=== PATIENT | female | born 1955 | race Caucasian/White ===

== ENCOUNTER 2018-04-19 02:09 | Inpatient (IN) | payer OTHER ==
[2018-04-19] VITALS (8 sets, daily range): BP systolic 106–152; BP diastolic 56–85
[~2018-04-19] VITALS: Ht 154.9 cm; Wt 92.1 kg
--- NOTE | ~2018-04-19 | ST ---
[place], [place] EXERCISE STRESS TEST REPORT NAME: LOBITO LEON UNIT #: [id number] ROOM: 405 DOCTOR: KATY SPAIN,WERO BIRTHDATE: [birth year] DOS: 04/19/2018 REASON FOR TEST: Chest pain. PHYSICAL EXAMINATION: NECK: Supple. LUNGS: Clear anteriorly. HEART: Regular rhythm. PROTOCOL: Russ protocol. Total stress time 3 minutes. Maximum heart rate of 138, which is 88% target heart rate and blood pressure 168/70. Total mets 4.7 mets. SYMPTOMS: The patient has chest pain. EKG: Resting EKG showed sinus rhythm. Stress EKG showed nondiagnostic inferior ST-T changes. CONCLUSION: Clinically, the patient is chest pain-free. The EKG nondiagnostic ST-T changes in the inferior leads. POST-STRESS COMPLICATIONS: None. WERO BURNS MD CM:STRESS:EXERCISE STRESS TEST REPORT 14 [id number] WERO BURNS MD
--- NOTE | ~2018-04-19 | EKG ---
[place], [place] ELECTROCARDIOGRAM REPORT NAME: LOBITO LEON UNIT #: [id number] ROOM: 405 DOCTOR: YAMILETHANY DRAFT REPORT BIRTHDATE: [birth year] [facility] Test Date: 2018-04-19 Test Time: 02:12:09 Pat Name: LOBITO LEON Department: ER Room: 405 Gender: F Electromechanic: Raul Guy : 1955 Requested By: PASCALE GILL Order Number: [id number] Reading MD: Mikhail Mendoza MD Measurements Intervals [place] Rate: 106 P: 62 [place]: 115 QRS: 60 QRSD: 97 T: -2 QT: 358 QTc: 476 Interpretive Statements Sinus tachycardia Left atrial enlargement Borderline repolarization abnormality Electronically Signed On 04-22-2018 8:30:30 PST by Mikhail Mendoza MD CM:EKGRPT:ELECTROCARDIOGRAM REPORT 0212 0830 PASCALE GILL MD EPIPHANY DRAFT REPORT PASCALE GILL MD
--- NOTE | ~2018-04-19 | EKG ---
[place], [place] ELECTROCARDIOGRAM REPORT NAME: LOBITO LEON UNIT #: [id number] ROOM: 405 DOCTOR: JOSE DRAFT REPORT BIRTHDATE: [birth year] [facility] Test Date: 2018-04-19 Test Time: 08:16:23 Pat Name: LOBITO LEON Department: Room: 405 Gender: F Claim Taker: CECILE : 1955 Requested By: PASCALE GILL Order Number: [id number] Reading MD: Vincenzo Ryan MD Measurements Intervals [place] Rate: 65 P: 7 NV: 121 QRS: 43 QRSD: 86 T: 18 QT: 435 QTc: 453 Interpretive Statements Sinus rhythm Abnormal R-wave progression, early transition Baseline wander in lead(s) I,III,aVL Electronically Signed On 04-23-2018 11:07:33 PST by Vincenzo Ryan MD CM:EKGRPT:ELECTROCARDIOGRAM REPORT 0816 1107 PASCALE GILL MD EPIPHANY DRAFT REPORT PASCALE GILL MD
--- NOTE | ~2018-04-19 | CON ---
[place], [place] REPORT OF CONSULTATION NAME: LOBITO LEON UNIT #: [id number] ROOM: 405 DOCTOR: WERO BURNS MD BIRTHDATE: [birth year] DOS: 04/19/2018 CARDIOLOGY CONSULTATION REASON FOR CONSULTATION: Chest pain. HISTORY OF PRESENT ILLNESS: The patient is a 63-year-old patient who has history of dyslipidemia, non-morbid obesity, irritable bowel syndrome, presented to the Emergency Room for chest pain as well as some nausea and she was admitted to the hospital and Cardiology was consulted for any further recommendation. She has this pain at rest in the midsternal area, pain radiated to her back and she describes the pain as some heaviness and tightness feeling associated with some nausea and vomiting x 1. The pain did radiate to her back and apparently she woke up from sleep with this pain. Initially, she had some shortness of breath and subsequently developed some nausea and vomiting. She tried at home some Tums with minimal relief and subsequently presented to the Emergency Room and was admitted to the hospital. She has history of peptic ulcer disease, hiatal hernia and irritable bowel syndrome. She denies any anginal chest pains, palpations or dizziness at home. No PND, no orthopnea. No bladder symptoms. No neurologic symptoms. No musculoskeletal symptoms. No history of coronary artery disease, diabetes or hypertension. REVIEW OF SYSTEMS: Review of 10 systems negative except as mentioned above. PAST MEDICAL HISTORY: 1. Hiatal hernia. 2. Peptic ulcer disease. 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 4. Non-morbid obesity. 5. Dyslipidemia. PAST SURGICAL HISTORY: History of ankle surgery and history of hysterectomy. SOCIAL HISTORY: The patient does not smoke or drink, does not use illicit drugs. FAMILY HISTORY: Mother is alive and healthy. Father in his 60s, unknown cause. ALLERGIES: No known drug allergies. HOME MEDICATIONS: Reviewed. PHYSICAL EXAMINATION: VITAL SIGNS: Blood pressure 128/60, pulse 85, respiratory rate 18, weight 92 kilos with BMI 38.4. GENERAL: Alert, comfortable, in no acute distress. HEAD AND NECK: Supple, no distended neck veins, no carotid bruit. Tongue was moist and pharynx clear. CHEST: Symmetrical, nontender. [place], [place] REPORT OF CONSULTATION NAME: LOBITO LEON UNIT #: [id number] ROOM: 405 DOCTOR: KATY SPAIN,WERO BIRTHDATE: [birth year] LUNGS: Clear to auscultation bilaterally. HEART: Regular rhythm, no S3. ABDOMEN: Benign, nontender. Bowel sounds normal. EXTREMITIES: Showed no edema. Distal pulses palpable. The patient had nonpitting edema. SKIN: Warm and dry. No cyanosis, no clubbing. RECTAL: Deferred. GENITOURINARY: Deferred. NEUROLOGIC: The patient is alert, oriented. No focal neurologic deficit. PSYCHIATRIC: The patient is alert with good mood and affect. REVIEW OF THE DIAGNOSTIC TESTS: EKG showed normal sinus rhythm with poor R-wave progression. Her CBC, chemistry and imaging studies reviewed. IMPRESSION: 1. Chest pain, myocardial infarction ruled out. 2. History of dyslipidemia. 3. Non-morbid obesity. 4. Guillain-[place] syndrome. 5. Nausea, currently improved. 6. Mild sinus tachycardia, resolved. 7. Labile hypertension, currently stable. 8. History of peptic ulcer disease. RECOMMENDATIONS: 1. Exercise nuclear stress test today to rule out ischemia due to her chest pain. 2. A 2D echo was ordered and pending. 3. Risk factor modification for diet, exercise, weight loss discussed. 4. Further recommendations will be based on her above tests and her symptoms. WERO BURNS MD CM:CONSTR:REPORT OF CONSULTATION 19 04/20/18 573 interface
--- NOTE | ~2018-04-19 | EKG ---
[place], [place] ELECTROCARDIOGRAM REPORT NAME: LOBITO LEON UNIT #: [id number] ROOM: 405 DOCTOR: JOSE DRAFT REPORT BIRTHDATE: [birth year] [facility] Test Date: 2018-04-19 Test Time: 03:02:32 Pat Name: LOBITO LEON Department: Room: 405 Gender: F Associate Curator: Raul Guy : 1955 Requested By: PASCALE GILL Order Number: [id number] Reading MD: Mikhail Mendoza MD Measurements Intervals [place] Rate: 80 P: 47 [place]: 126 QRS: 55 QRSD: 78 T: 24 QT: 382 QTc: 441 Interpretive Statements Sinus rhythm Probable left atrial enlargement Baseline wander in lead(s) V3 Electronically Signed On 04-22-2018 8:30:38 PST by Mikhail Mendoza MD CM:EKGRPT:ELECTROCARDIOGRAM REPORT 0302 0830 PASCALE GILL MD EPIPHANY DRAFT REPORT PASCALE GILL MD
[~2018-04-19 02:09] MED LIST: ANTIVERT/2525 MG PO; BACTRIM DS 8001 TA1 PO; CYCLOBENZAPRINE10 MG PO; CYCLOBENZAPRINE5 M3 PO; DARVOCET N 1001 TAB PO; DAYPRO600 M1 PO; FLEXERIL10 MG PO; HYDROCODONE BIT1 T11 PO; KEFLEX500 MG PO; Motrin,Rufen800 MG PO; NAPROSYN500 MG PO; NKHM; PRILOSEC40 MG PO; TORADOL10 MG PO; ULTRAM50 MG PO; VIBRAMYCIN100 MG PO; VICODIN 5/500 505 MG PO
[2018-04-19 02:24] LABS: BASO # 0.1 10*3/uL (0.0-0.1); BASO % 0.9 % (0.0-1.0); EOS # 0.2 10*3/uL (0.0-0.4); EOS % 2.5 % (1.0-4.0); HEMATOCRIT 41.1 % (37.0-47.0); HEMOGLOBIN 13.6 g/dl (12.0-16.0); LYMPH # 3.5 10*3/uL (1.3-4.4); LYMPH % 40.2 % (27.0-41.0); MEAN CELL VOLUME 90.7 fl (81.0-99.0); MEAN CORPUSCULAR HGB CONC 33.1 g/dl (33.0-37.0); MEAN PLATELET VOLUME 9.5 fl (9.6-12.3); MONO # 0.8 10*3/uL (0.1-1.0); MONO % 8.7 % (3.0-9.0); NEUT # 4.2 10*3/uL (2.3-7.9); NEUT % 47.5 % (47.0-73.0); PLATELET COUNT AUTOMATED 314 10*3/uL (130-400); RED BLOOD COUNT 4.53 10*6/uL (4.10-5.10); RED CELL DISTRI WIDTH 11.8 % (0-14.5); WHITE BLOOD COUNT 8.7 10*3/uL (4.8-10.8)
[2018-04-19 02:34] LABS: ACT PARTIAL THROMBO TIME 23.2 SECONDS (20.8-31.5); INTERNATIONAL NORM RATIO 0.9 (2.0-3.5)
[2018-04-19 02:40] LABS: ALBUMIN 3.5 gm/dl (3.1-4.5); ALKALINE PHOSPHATASE 87 U/L (45-117); BUN 22 mg/dl (7-24); CHLORIDE 106 mmol/L (98-107); CREATININE 1.59 mg/dL (0.55-1.02); POTASSIUM 3.6 mmol/L (3.5-5.1); SGOT/AST 19 IU/L (3-35); SGPT/ALT 22 U/L (12-78); SODIUM 142 mmol/L (136-145)
[2018-04-19 02:41] LABS: TROPONIN I < 0.015 ng/ml (<0.045)
[2018-04-19 05:45] LABS: BASO # 0.1 10*3/uL (0.0-0.1); BASO % 0.7 % (0.0-1.0); EOS # 0.1 10*3/uL (0.0-0.4); HEMATOCRIT 39.2 % (37.0-47.0); HEMOGLOBIN 12.7 g/dl (12.0-16.0); LYMPH % 20.7 % (27.0-41.0); MEAN CELL VOLUME 91.6 fl (81.0-99.0); MEAN CORPUSCULAR HGB 29.7 pg (27.0-31.0); MEAN CORPUSCULAR HGB CONC 32.4 g/dl (33.0-37.0); MEAN PLATELET VOLUME 9.8 fl (9.6-12.3); MONO # 0.6 10*3/uL (0.1-1.0); MONO % 6.1 % (3.0-9.0); NEUT # 6.9 10*3/uL (2.3-7.9); NEUT % 71.2 % (47.0-73.0); PLATELET COUNT AUTOMATED 301 10*3/uL (130-400); RED BLOOD COUNT 4.28 10*6/uL (4.10-5.10); RED CELL DISTRI WIDTH 11.7 % (0-14.5); WHITE BLOOD COUNT 9.7 10*3/uL (4.8-10.8)
[2018-04-19 05:50] LABS: ALBUMIN 3.3 gm/dl (3.1-4.5); CREATININE 1.37 mg/dL (0.55-1.02); PHOSPHOROUS 3.2 mg/dL (2.5-4.9); POTASSIUM 3.6 mmol/L (3.5-5.1); TOTAL PROTEIN 7.6 gm/dL (6.4-8.2)
[2018-04-19 05:56] LABS: THYROID STIM HORMONE (HS) 2.3 uIU/ml (0.358-4.75)
[2018-04-19 09:42] LABS: VITAMIN D, 25-HYDROXY 22.5 ng/mL (30-100)
[2018-04-20] VITALS: BP 103/49
[2018-04-20 06:38] LABS: BASO # 0.1 10*3/uL (0.0-0.1); EOS # 0.3 10*3/uL (0.0-0.4); EOS % 4.5 % (1.0-4.0); HEMATOCRIT 39.9 % (37.0-47.0); HEMOGLOBIN 12.6 g/dl (12.0-16.0); LYMPH # 2.8 10*3/uL (1.3-4.4); LYMPH % 45.2 % (27.0-41.0); MEAN CELL VOLUME 93.4 fl (81.0-99.0); MEAN CORPUSCULAR HGB 29.5 pg (27.0-31.0); MEAN CORPUSCULAR HGB CONC 31.6 g/dl (33.0-37.0); MEAN PLATELET VOLUME 9.7 fl (9.6-12.3); MONO # 0.5 10*3/uL (0.1-1.0); MONO % 8.7 % (3.0-9.0); NEUT # 2.5 10*3/uL (2.3-7.9); NEUT % 40.4 % (47.0-73.0); PLATELET COUNT AUTOMATED 283 10*3/uL (130-400); RED BLOOD COUNT 4.27 10*6/uL (4.10-5.10); RED CELL DISTRI WIDTH 11.9 % (0-14.5); WHITE BLOOD COUNT 6.2 10*3/uL (4.8-10.8)
[2018-04-20 07:00] LABS: BUN 17 mg/dl (7-24); CHLORIDE 110 mmol/L (98-107); SODIUM 141 mmol/L (136-145)
[2018-04-20 12:00] VITALS: BP 115/54
== END 2018-04-20 13:59 | disposition home or self-care (01) | DRG 391 ==
LOC: ED 02:09 → EDHOLD 03:06 → 4E 03:06
PROVIDERS: Emergency Medicine Emergency Medical Services; Internal Medicine
PROC: 4A02XM4 Measurement of Cardiac Total Activity, External Approach (ICD-10-PCS; principal; 2018-04-19)
DX: K21.9 Gastro-esophageal reflux disease without esophagitis (principal); R65.11 Systemic inflammatory response syndrome (SIRS) of non-infectious origin with acute organ dysfunction; N17.0 Acute kidney failure with tubular necrosis; G61.0 Guillain-Barre syndrome; I10 Essential (primary) hypertension; K27.9 Peptic ulcer, site unspecified, unspecified as acute or chronic, without hemorrhage or perforation; E55.9 Vitamin D deficiency, unspecified; R00.0 Tachycardia, unspecified; E83.41 Hypermagnesemia; K44.9 Diaphragmatic hernia without obstruction or gangrene; E86.0 Dehydration; E66.8 Other obesity; R11.2 Nausea with vomiting, unspecified; E78.5 Hyperlipidemia, unspecified; K58.9 Irritable bowel syndrome, unspecified; Z90.710 Acquired absence of both cervix and uterus; Z87.440 Personal history of urinary (tract) infections; Z98.51 Tubal ligation status; Z68.38 Body mass index [BMI] 38.0-38.9, adult

== ENCOUNTER → 2019-03-28 | Outpatient (CLI) | payer MEDICARE ==
[2019-03-28 11:22] LABS: BILIRUBIN NEGATIVE (NEGATIVE); BLOOD NEGATIVE (NEGATIVE); CLARITY CLEAR (CLEAR); COLOR YELLOW (YELLOW); GLUCOSE NEGATIVE (NEGATIVE); KETONE NEGATIVE (NEGATIVE); LEUKO ESTERASE NEGATIVE (NEGATIVE); NITRITE NEGATIVE (NEGATIVE); PH 5.5 (5.0-9.0); SPECIFIC GRAVITY 1.025 (1.005-1.030); UROBILINOGEN 0.2 E.U./dl (0.2-1.0)
[2019-03-28 11:30] LABS: BASO # 0.1 10*3/uL (0.0-0.1); BASO % 0.9 % (0.0-1.0); EOS # 0.1 10*3/uL (0.0-0.4); EOS % 2.5 % (1.0-4.0); HEMATOCRIT 40.8 % (37.0-47.0); HEMOGLOBIN 12.9 g/dl (12.0-16.0); LYMPH # 1.7 10*3/uL (1.3-4.4); LYMPH % 31.3 % (27.0-41.0); MEAN CELL VOLUME 94.2 fl (81.0-99.0); MEAN CORPUSCULAR HGB 29.8 pg (27.0-31.0); MEAN CORPUSCULAR HGB CONC 31.6 g/dl (33.0-37.0); MEAN PLATELET VOLUME 9.7 fl (9.6-12.3); MONO # 0.5 10*3/uL (0.1-1.0); MONO % 8.9 % (3.0-9.0); NEUT % 56.2 % (47.0-73.0); PLATELET COUNT AUTOMATED 288 10*3/uL (130-400); RED BLOOD COUNT 4.33 10*6/uL (4.10-5.10); WHITE BLOOD COUNT 5.3 10*3/uL (4.8-10.8)
[2019-03-28 11:52] LABS: ALBUMIN 3.7 gm/dl (3.1-4.5); ALKALINE PHOSPHATASE 97 U/L (45-117); BUN 18 mg/dl (7-24); CHLORIDE 108 mmol/L (98-107); CREATININE 0.82 mg/dL (0.55-1.02); POTASSIUM 3.8 mmol/L (3.5-5.1); SGOT/AST 17 IU/L (3-35); SGPT/ALT 27 U/L (12-78); SODIUM 140 mmol/L (136-145); TOTAL PROTEIN 7.9 gm/dL (6.4-8.2)
== END | disposition home or self-care (01) ==
LOC: LAB 10:55
PROVIDERS: Nurse Practitioner Family
DX: N39.0 Urinary tract infection, site not specified (principal)

== ENCOUNTER 2019-08-07 10:09 | Emergency (ER) | payer MEDICARE ==
[~2019-08-07] VITALS: Ht 154.9 cm; Wt 88.5 kg
[2019-08-07 10:17] VITALS: BP 130/55
[2019-08-07] MEDS ORDERED: PROVENTIL HFA6.7 GM INH (13:51)
[2019-08-07] MEDS ORDERED: TESSALON PERLE100 M1 PO (13:51)
== END 2019-08-07 13:55 | disposition home or self-care (01) ==
LOC: ED 10:09
DX: J40 Bronchitis, not specified as acute or chronic (principal); Z90.710 Acquired absence of both cervix and uterus

== ENCOUNTER → 2021-03-10 | Outpatient (CLI) | payer MEDICARE ==
[~2021-03-10] MED LIST changes: +PROVENTIL HFA6.7 GM INH; +TESSALON PERLE100 M1 PO
== END | disposition home or self-care (01) ==
LOC: RAD 11:12
PROVIDERS: ATTEND Nurse Practitioner Family
DX: R05.9 Cough, unspecified (principal)

== ENCOUNTER → 2021-07-25 | Outpatient (CLI) | payer MEDICARE | END | disposition home or self-care (01) | LOC: RAD 14:55 | PROVIDERS: ATTEND Nurse Practitioner Family | DX: M17.12 Unilateral primary osteoarthritis, left knee (principal); M25.562 Pain in left knee; M25.762 Osteophyte, left knee ==

== ENCOUNTER → 2021-08-29 | Outpatient (CLI) | payer MEDICARE | END | disposition home or self-care (01) | LOC: RAD 08-24 13:30 → MAMMO 08-24 14:00 → RAD 08-25 14:00 → MAMMO 10:30 → RAD 13:30 | PROVIDERS: ATTEND Family Medicine | DX: Z12.31 Encounter for screening mammogram for malignant neoplasm of breast (principal); Z78.0 Asymptomatic menopausal state; M81.0 Age-related osteoporosis without current pathological fracture ==

== ENCOUNTER 2022-02-20 14:54 | Emergency (ER) | payer MEDICARE ==
[~2022-02-20] VITALS: Ht 154.9 cm; Wt 90.7 kg
[2022-02-20 15:22] VITALS: BP 144/58
[2022-02-20 16:50] LABS: BILIRUBIN Negative (Negative); BLOOD Negative (Negative); CLARITY Clear (Clear); COLOR Yellow (Yellow); GLUCOSE Negative (Negative); KETONE Negative (Negative); LEUKO ESTERASE Trace (Negative); NITRITE Positive (Negative); PH 5.5 (4.5-8.0); SPECIFIC GRAVITY 1.015 (1.001-1.030); UROBILINOGEN 0.2 E.U./dl (0.0-1.0)
[2022-02-20 17:00] LABS: BACTERIA 4+; EPITHELIAL CELLS 0-2
[2022-02-20] MEDS ORDERED: NAPROSYN500 MG PO (17:17)
[2022-02-20] MEDS ORDERED: MACROBID100 M1 PO (17:17)
== END 2022-02-20 17:22 | disposition home or self-care (01) ==
LOC: ED 14:54
PROVIDERS: Physician Assistant
DX: N39.0 Urinary tract infection, site not specified (principal); M54.50 Low back pain, unspecified; Z90.710 Acquired absence of both cervix and uterus; Z98.890 Other specified postprocedural states; Z98.51 Tubal ligation status

== ENCOUNTER 2023-08-22 12:01 | Emergency (ER) | payer MEDICARE ==
[~2023-08-22] VITALS: Ht 152.4 cm; Wt 81.6 kg
[~2023-08-22 12:01] MED LIST changes: +MACROBID100 M1 PO
[2023-08-22 12:16] VITALS: BP 146/78
[2023-08-22] MEDS ORDERED: IOHEXOL 300 MG/ML 100 ML VIAL IV ONE (12:30)
[2023-08-22 12:40] LABS: BASO # 0.1 10*3/uL (0.0-0.1); BASO % 0.7 % (0.0-1.0); EOS # 0.1 10*3/uL (0.0-0.4); EOS % 1.4 % (1.0-4.0); HEMATOCRIT 44.1 % (37.0-47.0); LYMPH # 1.9 10*3/uL (1.3-4.4); LYMPH % 22.9 % (27.0-41.0); MEAN CELL VOLUME 93.4 fl (81.0-99.0); MEAN CORPUSCULAR HGB 29.4 pg (27.0-31.0); MEAN CORPUSCULAR HGB CONC 31.5 g/dl (33.0-37.0); MEAN PLATELET VOLUME 9.4 fl (9.6-12.3); MONO # 0.8 10*3/uL (0.1-1.0); MONO % 9.2 % (3.0-9.0); NEUT # 5.5 10*3/uL (2.3-7.9); NEUT % 65.4 % (47.0-73.0); PLATELET COUNT AUTOMATED 320 10*3/uL (130-400); RED BLOOD COUNT 4.72 10*6/uL (4.10-5.10); RED CELL DISTRI WIDTH 11.9 % (0-14.5); WHITE BLOOD COUNT 8.5 10*3/uL (4.8-10.8)
[2023-08-22 13:44] LABS: ALKALINE PHOSPHATASE 88 U/L (46-116); BUN 8 mg/dl (9-23); CHLORIDE 105 mmol/L (98-107); LIPASE 27 U/L (12-53); POTASSIUM 4.3 mmol/L (3.4-5.1); SGPT/ALT 17 U/L (5-49); TOTAL PROTEIN 7.5 gm/dL (6.0-8.0)
[2023-08-22 14:38] LABS: BILIRUBIN Negative (Negative); BLOOD Negative (Negative); CLARITY Cloudy (Clear); COLOR Yellow (Yellow); GLUCOSE Negative (Negative); KETONE 1+ (Negative); LEUKO ESTERASE 1+ (Negative); NITRITE Positive (Negative); PH 5.5 (4.5-8.0); SPECIFIC GRAVITY 1.025 (1.001-1.030)
[2023-08-22 15:13] LABS: BACTERIA 4+; WBC 21-30 wbc/hpf (0-5)
[2023-08-22] MEDS ORDERED: CIPRO500 MG PO (15:18)
[2023-08-22] MEDS ORDERED: METRONIDAZOLE500 M1 PO (15:18)
== END 2023-08-22 15:33 | disposition home or self-care (01) ==
LOC: ED 12:01
PROVIDERS: Physician Assistant Medical
DX: K57.32 Diverticulitis of large intestine without perforation or abscess without bleeding (principal); N39.0 Urinary tract infection, site not specified; Z90.710 Acquired absence of both cervix and uterus; Z98.51 Tubal ligation status; Z98.890 Other specified postprocedural states

== ENCOUNTER → 2024-07-23 | Outpatient (CLI) | payer MEDICARE ==
[~2024-07-23] MED LIST changes: +CIPRO500 MG PO; +METRONIDAZOLE500 M1 PO
[2024-07-23 11:03] LABS: BASO # 0.1 10*3/uL (0.0-0.1); BASO % 1.1 % (0.0-1.0); EOS # 0.2 10*3/uL (0.0-0.4); EOS % 3.9 % (1.0-4.0); HEMATOCRIT 44.1 % (37.0-47.0); MEAN CELL VOLUME 94.4 fl (81.0-99.0); MEAN CORPUSCULAR HGB 29.3 pg (27.0-31.0); MEAN CORPUSCULAR HGB CONC 31.1 g/dl (33.0-37.0); MEAN PLATELET VOLUME 9.3 fl (9.6-12.3); MONO # 0.6 10*3/uL (0.1-1.0); MONO % 10.4 % (3.0-9.0); NEUT # 2.7 10*3/uL (2.3-7.9); NEUT % 48.6 % (47.0-73.0); PLATELET COUNT AUTOMATED 296 10*3/uL (130-400); RED BLOOD COUNT 4.67 10*6/uL (4.10-5.10); WHITE BLOOD COUNT 5.6 10*3/uL (4.8-10.8)
[2024-07-23 11:35] LABS: ALKALINE PHOSPHATASE 82 U/L (46-116); BUN 14 mg/dl (9-23); CHLORIDE 106 mmol/L (98-107); CHOLESTEROL 227 mg/dL (<200); LDL CHOLESTEROL 149 mg/dL (9-159); POTASSIUM 4.3 mmol/L (3.4-5.1); SGPT/ALT 11 U/L (5-49); TOTAL PROTEIN 7.7 gm/dL (6.0-8.0); TRIGLYCERIDES 93 mg/dl (<150)
== END | disposition home or self-care (01) ==
LOC: LAB 10:35
PROVIDERS: Occupational Therapist; ATTEND Family Medicine
DX: R06.02 Shortness of breath (principal); E78.5 Hyperlipidemia, unspecified; E55.9 Vitamin D deficiency, unspecified

== ENCOUNTER → 2024-08-06 | Outpatient (CLI) | payer MEDICARE ==
[~2024-08-06] MED LIST changes: +Technetium Tc 99M Tetrofosmi 0.23 MG KIT IJ SCH
== END | disposition home or self-care (01) ==
LOC: CARD 03:25
PROVIDERS: ATTEND Family Medicine
DX: R06.02 Shortness of breath (principal)

== ENCOUNTER → 2024-08-07 | Outpatient (CLI) | payer MEDICARE ==
[~2024-08-07] MED LIST changes: -Technetium Tc 99M Tetrofosmi 0.23 MG KIT IJ SCH
== END | disposition home or self-care (01) ==
LOC: RAD 13:08
PROVIDERS: ATTEND Family Medicine
DX: J44.9 Chronic obstructive pulmonary disease, unspecified (principal); R06.02 Shortness of breath; R07.81 Pleurodynia

== ENCOUNTER → 2024-11-24 | Outpatient (CLI) | payer MEDICARE | END | disposition home or self-care (01) | LOC: RAD 09:30 | PROVIDERS: ATTEND Family Medicine | DX: Z12.31 Encounter for screening mammogram for malignant neoplasm of breast (principal); N63.20 Unspecified lump in the left breast, unspecified quadrant; M81.0 Age-related osteoporosis without current pathological fracture; R92.323 Mammographic fibroglandular density, bilateral breasts ==

== ENCOUNTER → 2024-12-16 | Outpatient (CLI) | payer MEDICARE ==
[~2024-12-16] MED LIST changes: +METHOCARBAMOL750 M1 PO; +PREDNISONE20 M1 PO; +TRAMADOL HCL50 MG PO
== END | disposition home or self-care (01) ==
LOC: US 12:39
PROVIDERS: ATTEND Family Medicine
DX: N60.02 Solitary cyst of left breast (principal)

== ENCOUNTER → 2025-02-12 | Outpatient (CLI) | payer MEDICARE | END | disposition home or self-care (01) | LOC: CARD 12:58 | PROVIDERS: ATTEND Family Medicine | DX: R06.09 Other forms of dyspnea (principal) ==